=== PATIENT | female | born 1995 | race Hispanic/Latino ===

== ENCOUNTER 2021-01-28 15:50 | Emergency (ER) | payer BC, SELFPAY ==
[2021-01-28 16:14] VITALS: BP 117/76; PULSE 56; RESP 18; TEMP 36.3; O2SAT 98
--- NOTE | 2021-01-28 16:48 | ED.EAR ---
HPI - Ear Problem General Chief complaint: Ear Stated complaint: Cyst on left ear lobe Time Seen by Provider: 01/28/21 16:45 Source: patient, RN notes reviewed and old records reviewed Mode of arrival: ambulatory Limitations: no limitations History of Present Illness HPI Narrative: 25 year old female who presents to [facility] care with complaints of having a pimple to left ear lobe which started on Wednesday or and she popped it Wednesday with purulent drainage noted. Left ear lobe remains swollen with some redness and purulent drainage coming from small lesion on the earlobe. Patient denies any fevers, chills or sweats, denies any other ill symptoms.Scaly rash on face next to earlobe with no drainage present from skin area. Patient has been cleansing with alcohol and applying Neosporin ointment rates pain 5/10 to left earlobe with increase on palpation of area. MD Complaint: ear pain and ear discharge (left ear lobe) Location: left ear Severity: moderate Related Data Allergies Allergy/AdvReac Type Severity Reaction Status Date / Time No Known Allergies Allergy Unverified 02/24/12 14:30 Review of Systems Review of Systems: CONSTITUTIONAL: Denies fever, chills, or sweats. EYES: Denies visual changes, redness, or discharge. ENT: Denies rhinorrhea, congestion, sore throat, or otalgia. CARDIOVASCULAR: Denies chest pain, palpitations, or edema. RESPIRATORY: Denies cough or dyspnea. GASTROINTESTINAL: Denies abdominal pain, nausea, vomiting, or diarrhea. GENITOURINARY: Denies dysuria or hematuria. SKIN: positive scaly rash to face next to left earlobe with drainage and redness from lesion on left earlobe. no itching. MUSCULOSKELETAL: Denies back pain, joint pain, or myalgia. NEUROLOGIC: Denies headache, numbness, or weakness. PSYCHIATRIC: Denies anxiety or depression. All systems reviewed & are unremarkable except as noted in HPI and below PMFSH Past Medical History Medical History (Updated 02/01/21 @ 20:10 by Florence Cohn NP) Skin abscess Surgical History Surgical History (Updated 02/01/21 @ 20:09 by Florence Cohn NP) No history of previous surgery Family History Family History (Updated 02/01/21 @ 20:11 by Florence Cohn NP) Other No significant family history Social History Social History (Updated 02/01/21 @ 20:12 by Florence Cohn NP) Smoking status: Smoker, status unknown Alcohol intake: current Alcohol use details: rare social Substance use: never Living arrangements: with family Gender identity (if verbalized by the patient): Female Comments At time of signature, agree with nursing past medical, surgical, social and family history. There is no relevant family history pertinent to the presenting complaint Exam Narrative: GENERAL: Well-appearing, well-nourished, and in no acute distress. HEAD: Normocephalic, atraumatic. EYES: PERRLA and EOMI. ENT: Nares clear, no rhinorrhea or epistaxis. Mucous membranes moist.TM;s normal with good light reflex, drainage from left earlobe lesion, throat pink with no exudates or lesions, no tonsil enlargement NECK: Supple.no lymphadenopathy CHEST: Clear to auscultation. No respiratory distress. SAO2 98% on room air HEART: Regular rate and rhythm. No murmur heard. Normal peripheral pulses. ABDOMEN: Soft, nontender, nondistended, normal active bowel sounds. EXTREMITIES: Normal range of motion. No edema. SKIN: Warm, dry scaly rash to skin on face next to ear lobe on left with no drainage noted, small draining lesion to left ear lobe of purulent matter, some redness and tenderness of left earlobe especially on palpation of area, denies any itching of skin, . NEURO: No focal deficits. Alert and oriented x3. Course Vital Signs Vital signs: Vital Signs Temperature 36.3 C L 01/28/21 16:14 Pulse Rate 56 L 01/28/21 16:14 Respiratory Rate 18 01/28/21 16:14 Blood Pressure 117/76 01/28/21 16:14 Pulse Oximetry 98 01/28/21 16:14
== END 2021-01-28 17:15 | disposition home or self-care (01) ==
PROVIDERS: Emergency Provider Registered Nurse
DX: H60.02 Abscess of left external ear (principal)
CPT/HCPCS: 99213; G0463

== ENCOUNTER 2024-02-16 17:12 | Emergency (ER) | payer OTHER, SELFPAY ==
[2024-02-16 17:20] VITALS: BP 115/75; PULSE 80; RESP 14; O2SAT 100
--- NOTE | 2024-02-16 17:21 | ED.ALLEREA ---
HPI - Allergic Reaction General Chief complaint: Allergic Reaction Stated complaint: allergic reaction Time Seen by Provider: 02/16/24 17:21 Source: patient Mode of arrival: ambulatory Limitations: no limitations History of Present Illness HPI narrative: Intermittent itching skin rash over the last 48 hours gets better on Benadryl. Patient started using a new strain of marijuana lately. Today got worse associated with a lump in the throat and difficulty breathing. Patient denies a history of skin rash or allergy or asthma. Patient started a new job 4 months ago. Related Data Allergies Allergy/AdvReac Type Severity Reaction Status Date / Time No Known Allergies Allergy Unverified 02/24/12 14:30 Review of Systems Review of Systems: All systems reviewed & are unremarkable except as noted in HPI and below PMFSH Past Medical History Medical History Skin abscess Surgical History Surgical History No history of previous surgery Family History Family History Other No significant family history Social History Social History Smoking status: Smoker, status unknown Alcohol intake: current Alcohol use details: rare social Substance use: never Living arrangements: with family Gender identity (if verbalized by the patient): Female Exam Narrative: General appearance: Well-developed, well-nourished Skin: Scattered hives all over Head: Normocephalic, nontraumatic Eyes: Clear conjunctiva ENT: Oropharynx normal, ears normal, nose normal, normal size tongue and lips Neck: Supple, nontender Chest and respiratory: Airway patent, no respiratory distress, no accessory muscle use Heart: Regular rate/rhythm Abdomen: Soft, nontender, no organomegaly, quiet bowel sounds Vascular: Normal peripheral pulses, normal capillary refill. Musculoskeletal: Normal range of motion, nontender back Neurologic: Alert and oriented ?3, Course Vital Signs Vital signs: Vital Signs Pulse Rate 80 02/16/24 17:20 Respiratory Rate 14 02/16/24 17:20 Blood Pressure 115/75 02/16/24 17:20 Pulse Oximetry 100 02/16/24 17:20 Oxygen Delivery Room Air 02/16/24 17:20 Pulse Rate 80 02/16/24 17:20 Respiratory Rate 14 02/16/24 17:20 Blood Pressure 115/75 02/16/24 17:20 Pulse Oximetry 100 02/16/24 17:20 Oxygen Delivery Room Air 02/16/24 17:20 MDM - Allergic Reaction MDM Narrative Medical decision making narrative: Patient presents with allergic reaction, hives, trouble breathing and swallowing intermittent for the last 48 hours Vital signs are stable Physical examination showed restless patient with scattered hives all over, clear lung, no swelling of the lips or the tongue or the throat Allergic reaction to unknown source is my concern. Patient symptom resolved completely after epinephrine IM, Benadryl IV and Solu-Medrol IV. Discharged on prednisone and Zyrtec. Discharge the pt was discharged to home.the pt,s condition upon discharge was fair,education was provided to the pt in reference to the final impression,discharge study results,treatment,prognosis and need for follow up . Differential Diagnosis Differential diagnosis: Likely other (Allergic reaction to unknown source probably marijuana) Critical Care Time Critical Care Time Critical Care Time: No Discharge Plan Discharge Clinical Impression: Allergic reaction Patient Disposition: Home, Self-Care Condition: Improved Instructions: General
[2024-02-16] MEDS: methylPREDNISolone SOD SUCC 125 MG VIAL IV PUSH (17:25)
[2024-02-16] MEDS: diphenhydrAMINE HCl INJ 50 MG/ML VIAL IV PUSH (17:26)
[2024-02-16] MEDS: EPINEPHrine HCL INJ 1 MG/ML AMPUL 0.3 MG IM (17:26)
[2024-02-16 18:23] VITALS: BP 134/65; PULSE 90; RESP 18; TEMP 36.6; O2SAT 100
== END 2024-02-16 18:23 | disposition home or self-care (01) ==
PROVIDERS: Emergency Provider Emergency Medicine
DX: L50.0 Allergic urticaria (principal)
CPT/HCPCS: 96372; 96374; 96375; 99284; J0171; J1200; J2919